=== PATIENT | female | born 1955 | race Hispanic/Latino ===

== ENCOUNTER → 2023-04-23 | Outpatient (CLI) | payer BC | END | disposition home or self-care (01) | LOC: OIH 09:43 | PROVIDERS: ATTEND Internal Medicine | DX: S93.401A Sprain of unspecified ligament of right ankle, initial encounter (principal); M79.89 Other specified soft tissue disorders; M77.31 Calcaneal spur, right foot; M19.071 Primary osteoarthritis, right ankle and foot; X58.XXXA Exposure to other specified factors, initial encounter; Y93.89 Activity, other specified; Y92.89 Other specified places as the place of occurrence of the external cause; Y99.8 Other external cause status | CPT/HCPCS: 73600 ==

== ENCOUNTER → 2024-07-21 | Outpatient (CLI) | payer OTHER ==
--- NOTE | 2024-07-21 11:00 | HMCIMG ---
KNEE/PATELLA 1-2VWS RT REASON: KNEE EFFUSION RIGHT TECHNIQUE: 2 views were obtained. FINDINGS: There is no evidence of fracture or dislocation. There is no joint effusion. The soft tissues appear unremarkable. There is no evidence of a radiopaque foreign body. There is moderate to medial and lateral joint space narrowing consistent with osteoarthritis. There is also mild lateral subluxation of the proximal tibia in relation to the distal femur. IMPRESSION: 1. Moderate osteoarthritis as described.
== END | disposition home or self-care (01) ==
LOC: RAH 07:59
PROVIDERS: ATTEND Internal Medicine
DX: S83.141A Lateral subluxation of proximal end of tibia, right knee, initial encounter (principal); M17.11 Unilateral primary osteoarthritis, right knee; M25.461 Effusion, right knee; X58.XXXA Exposure to other specified factors, initial encounter; Y93.9 Activity, unspecified; Y92.89 Other specified places as the place of occurrence of the external cause; Y99.8 Other external cause status
CPT/HCPCS: 73560

== ENCOUNTER → 2024-08-06 | Outpatient (CLI) | payer OTHER ==
--- NOTE | 2024-08-06 15:09 | HMCIMG ---
KNEE/PATELLA 1-2VWS LT REASON: CONTUSION OF LEFT KNEE TECHNIQUE: 2 views were obtained. FINDINGS: There is no evidence of fracture or dislocation. There is no joint effusion. The soft tissues appear unremarkable. There is no evidence of a radiopaque foreign body. IMPRESSION: No acute findings.
== END | disposition home or self-care (01) ==
LOC: RAH 12:08
PROVIDERS: ATTEND Internal Medicine
DX: S80.02XA Contusion of left knee, initial encounter (principal); X58.XXXA Exposure to other specified factors, initial encounter; Y93.89 Activity, other specified; Y92.89 Other specified places as the place of occurrence of the external cause; Y99.8 Other external cause status
CPT/HCPCS: 73560

== ENCOUNTER → 2024-08-13 | Outpatient (CLI) | payer OTHER ==
--- NOTE | 2024-08-13 16:40 | HMCIMG ---
KNEE 3VWS LT HISTORY: Pain COMPARISON: None TECHNIQUE: 3 images of left knee were obtained. FINDINGS: There is no acute displaced fracture or dislocation. There is soft tissue swelling. Degenerative changes are seen. IMPRESSION: 1. Findings as described above.
== END | disposition home or self-care (01) ==
LOC: EDBD 15:07 → RAH 15:07
PROVIDERS: ATTEND Internal Medicine
DX: M17.12 Unilateral primary osteoarthritis, left knee (principal); M25.562 Pain in left knee
CPT/HCPCS: 73562

== ENCOUNTER → 2024-12-16 | Outpatient (CLI) | payer OTHER ==
--- NOTE | 2024-12-16 11:28 | HMCIMG ---
Exam Type: US ABDOMINAL COMPLETE Clinical Information: unspecified abd pain Comparison: None Findings: The liver shows normal echogenicity is otherwise unremarkable. Doppler evaluation shows patent portal and hepatic veins. The gallbladder is surgically absent. No bile duct dilatation is noted. The common bile duct measures 7 mm. Kidneys are normal in size. Bilateral mild hydronephrosis. Right dilatation of the ureter. The pancreas is unremarkable. The spleen is unremarkable. The aorta and inferior vena cava show no significant abnormalities. IMPRESSION: Status post cholecystectomy. Bilateral hydronephrosis. Otherwise unremarkable exam.
== END | disposition home or self-care (01) ==
LOC: RAH 08:20
PROVIDERS: ATTEND Internal Medicine
DX: N13.30 Unspecified hydronephrosis (principal); R10.9 Unspecified abdominal pain; G89.29 Other chronic pain; R74.8 Abnormal levels of other serum enzymes; Z90.49 Acquired absence of other specified parts of digestive tract
CPT/HCPCS: 76700

== ENCOUNTER 2025-08-11 19:59 | Emergency (ER) | payer OTHER ==
[~2025-08-11] VITALS: Ht 142.2 cm; Wt 42.6 kg
[~2025-08-11 19:59] MED LIST: ACET-3859 PO; CHOL500051 PO; DENO60DI SQ; FERR30CA PO; FOLI0.8T53 PO; ROSU5TAB51 PO
[2025-08-11 20:46] LABS: IMMATURE GRANULOCYTE ABSOLUTE 0.02 K/uL (0-1); NUCLEATED RED BLOOD CELLS 0.0 % (0.0-0.19); PLATELET COUNT (AUTO) 111 K/uL (130-400); RED BLOOD CELL COUNT(AUTO) 3.93 MIL/uL (4.00-5.50); RED CELL DISTRIBUTION WIDTH 14.4 % (11.0-15.5); WHITE BLOOD COUNT (AUTO) 3.5 K/uL (4.8-10.8)
--- NOTE | 2025-08-11 20:47 | ERN ---
ED Note History of Present Illness Stated Complaint: C/O LEAKING NEPHROSTOMY BAG Chief Complaint: Other Problems Time Seen by MD: 20:03 Dictation: This is a 72-year-old female with multiple medical problems was recently admitted during the end of May with a acute renal failure bilateral hydronephrosis. Patient also has CKD and hence Dr. Sheppard the jewel bearing turner had an AV fistula placed in her left upper extremity and a temporary hemodialysis catheter in the neck was converted to a PermCath and dialysis was pursued. Patient had mild life-threatening metabolic acidosis and hyperkalemia as well as anemia requiring 2 units of PRBC. Patient apparently has a history of neurogenic bladder and has a chronic Martin catheter placed but she had complicated cystitis. Patient was urine self catheterizing herself however due to gross hematuria an indwelling Martin catheter was placed prior to her coming to the emergency room. Patient also underwent nephrostomy tube placements and eventually discharged to home. Comes back in today complaining of leaking nephrostomy tube. No fever chills or rigors. No hematuria. No bleeding per nephrostomy tubes. Temperature 98.4 pulse 89 respirations 20 blood pressure 160/74 with a pulse oximetry of 99% on room air Her chronic medical problems include history of cervical cancer, chronic kidney disease, neurogenic bladder Allergies: Coded Allergies: No Known Drug Allergies (Verified Allergy, Unknown, 06/18/25) Sulfa (Sulfonamide Antibiotics) (Unverified Allergy, Unknown, 06/18/25) Home Meds Active Scripts Folic Acid/Vit B Complex and C (Nephro Vitamins Tablet) 0.8 Mg Tablet, 0.8 MG PO DAILY, #90 TAB 1 Refill Prov:ROYA MANNING MD 06/24/25 Acetaminophen (Acetaminophen) 325 Mg Tablet, 650 MG PO Q6HPRN PRN for PAIN LEVEL 6 TO 10, #100 TAB Prov:ROYA MANNING MD 06/18/25 Cholecalciferol (Vitamin D3) (Vitamin D3) 125 Mcg (5000 Unit) Capsule, 125 MCG PO DAILYBKFST for 90 Days, #90 CAP Prov:ROYA MANNING MD 06/18/25 Denosumab (Prolia) 60 Mg/Ml Disp.syrin, 60 MG SQ AD for osteoporosis for 180 Days, #1 DIS.SYR Prov:ROYA MANNING MD 06/18/25 Ferric Maltol (Accrufer) 30 Mg Iron Capsule, 30 MG PO BID for 90 Days, #90 CAP Prov:ROYA MANNING MD 06/18/25 Reported Medications Rosuvastatin Calcium (Rosuvastatin Calcium) 5 Mg Tablet, 5 MG PO QWEEK, TAB 06/18/25 Past Medical History Past Medical History: Cancer, Renal Disese, Other Additional Past Medical Hx: CERVICAL CA (REMISSION) Surgical History: Other Surgical History Other: NEPHROSTOMY BAG Family History: Negative Social History: Negative History: Not Applicable RN Note Reviewed/Agreed w/PFSH: Yes Review of System Dictation Constitutional: Negative for fever,chills, and weight loss Eyes: Negative for injury, pain,redness, and discharge ENT: Negative for injury,pain or swelling Cardiovascular: Negative for chest pain, palpitations, and edema Respiratory: Negative for shortness of breath, cough, and wheezing, Abdomen/GI: Negative for abdominal pain, nausea, vomiting, diarrhea, and constipation Back: Negative for injury and pain positive for nephrostomy tube leakage : Negative for injury, bleeding and discharge MS/Extremity: Negative for injury and deformity Skin: Negative for rash, and discoloration Neuro: Negative for headache, weakness, numbness, tingling, and seizure Psych: Negative for suicide ideation, homicidal ideation, and hallucinations Initial Vital Sign VS Vital Signs Date Time Temp Pulse Resp B/P (MAP) Pulse Ox O2 Delivery O2 Flow Rate FiO2 08/11/25 20:01 98.4 89 20 160/74 99 Room Air 08/11/25 20:50 0 21 Physical Exam Dictation General: awake, alert, NAD emaciated elderly female who is malnourished. Patient's son at bedside patient was already threatening to leave AMA stating she did not want to wait until the CT scan results are back Head/Face: Normocephalic, atraumatic Eyes: PERRL, EOMI, vision at baseline ENT: oral cavity clear, TMs clear, no signs of infection Neck: Trachea midline, supple, no nuchal rigidity Cardiovascular: RRR, normal S1/S2, No MRGs, no JVD Respiratory: CTAB, no respiratory distress, No rales or wheezes Abdomen: Soft, non-tender, non-distended, normal bowel sounds, no guarding or rebound. Bilateral nephrostomy tubes in the flank areas and during my evalua tion the nurse has already readjusted them and did the wound dressing. Skin: Warm, dry, normal turgor, no rash MS/Extremity: Pulses equal, no cyanosis, neurovascular intact, FROM Neuro: COAx4, GCS 15, strength 5/5, CN 2-12 intact, normal cerebellar exam, n ormal gait, Psych: Normal behavior, mood, and affect normal Extremities-trace edema without any palpable cords, Homans sign is negative Results (Laboratory/Radiology) Laboratory/Radiology Laboratory Tests Test 08/11/25 20:37 08/11/25 21:15 White Blood Count 3.5 K/uL (4.8-10.8) L Red Blood Count 3.93 MIL/uL (4.00-5.50) L Hemoglobin 12.2 g/dL (12.0-16.0) Hematocrit 38.6 % (36-48) Mean Corpuscular Volume 98.2 fL (79-99) Mean Corpuscular Hemoglobin 31.0 pg (27.0-33.0) Mean Corpuscular Hemoglobin Concent 31.6 g/dL (32.0-36.0) L Red Cell Distribution Width 14.4 % (11.0-15.5) Platelet Count 111 K/uL (130-400) L Mean Platelet Volume 8.3 fL (7.5-10.5) Immature Granulocyte % (Auto) 0.6 % (0-1) Neutrophils (%) (Auto) 69.5 % (40.0-77.0) Lymphocytes (%) (Auto) 18.2 % (21.0-51.0) L Monocytes (%) (Auto) 9.1 % (3.0-13.0) Eosinophils (%) (Auto) 2.0 % (0.0-8.0) Basophils (%) (Auto) 0.6 % (0.0-5.0) Neutrophils # (Auto) 2.4 K/uL (1.8-7.7) Lymphocytes # (Auto) 0.6 K/uL (1.0-4.8) L Monocytes # (Auto) 0.3 K/uL (0.1-1.0) Eosinophils # (Auto) 0.07 K/uL (0.00-0.70) Basophils # (Auto) 0.02 K/uL (0.00-0.20) Absolute Immature Granulocyte (auto 0.02 K/uL (0-1) Nucleated Red Blood Cells 0.0 % (0.0-0.19) Sodium Level 140 mmol/L (136-145) Potassium Level 3.9 mmol/L (3.5-5.1) Chloride Level 104 mmol/L (101-111) Carbon Dioxide Level 28 mmol/L (21-32) Blood Urea Nitrogen 19 mg/dL (7-18) H Creatinine 1.5 mg/dL (0.5-1.0) H Glomerular Filtration Rate Calc 37 mL/min (>90) Random Glucose 93 mg/dL (70-105) Total Calcium 9.8 mg/dL (8.5-10.1) Urine Color LIGHT-YELLOW (YELLOW) Urine Appearance CLOUDY (CLEAR) H Urine pH 7.5 (5.0-8.0) Urine Specific [place] 1.007 (1.001-1.031) Urine Protein 100 mg/dL (NEGATIVE) H Urine Glucose (UA) NEGATIVE mg/dL (NEGATIVE) Urine Ketones NEGATIVE mg/dL (NEGATIVE) Urine Occult Blood MODERATE (NEGATIVE) H Urine Nitrate NEGATIVE (NEGATIVE) Urine Bilirubin NEGATIVE mg/dL (NEGATIVE) Urine Urobilinogen 0.2 mg/dL (0.2-1.0) Urine Leukocyte Esterase 500 Gregg/uL (NEGATIVE) H Urine RBC 6-10 /HPF (0-1) H Urine WBC TNTC /HPF (0-1) H Urine WBC Clumps (Auto) FEW /HPF (0-1) Urine Squamous Epithelial Cells RARE /HPF (0-2) Urine Bacteria MOD /HPF (None Seen) Labs Reviewed?: Yes CT Scan Comment: REASON: Nephrostomy leaking Evaluate kidneys and retroperitoneum and intra abd. pat ORDERING PHYSICIAN: MED ASHBY MD PROCEDURE: ABD PELVWO - CT ABD/PEL WO CON RENAL/APPY EXAM: CT Abdomen and Pelvis Without IV contrast. CLINICAL HISTORY: Patient presents with a leaking nephrostomy catheter for evaluation of the kidneys, retroperitoneum, and intra-abdominal pathology. TECHNIQUE: Axial computed tomography images of the abdomen and pelvis without intravenous contrast. CONTRAST: No IV contrast. COMPARISON: CT dated 06/18/2025 FINDINGS: LUNG BASES: Mild bibasilar dependent atelectasis. LIVER: Unremarkable. GALLBLADDER AND BILE DUCTS: Post cholecystectomy status. No biliary ductal dilatation. PANCREAS: Unremarkable. SPLEEN: Stable small calcified granuloma. ADRENAL GLANDS: Unremarkable. KIDNEYS, URETERS, AND BLADDER: Relatively smaller right kidney. Significant interval resolution of previously demonstrated moderate bilateral hydroureteronephrosis with a percutaneous nephrostomy catheter in situ. Associated with mild smooth wall thickening of the bilateral renal pelvis and proximal ureters. Mild bilateral perinephric fat stranding and haziness. The urinary bladder is suboptimally distended with increased wall thickening. No urinary calculi. STOMACH AND BOWEL: Mild fecal loading suggesting constipation. No bowel obstruction. Postsurgical clips in the left inguinal region. APPENDIX: No CT features of acute appendicitis. PERITONEUM: Moderate interval reduction in previously demonstrated free fluid. No free air. LYMPH NODES: No pathologically enlarged lymph nodes. REPRODUCTIVE: Uterus not well visualized. VASCULATURE: Mild atheromatous wall calcifications in the aorta and its branches. Redemonstrated metallic implants near the para-aortic region. BONES: Transpedicular fixation screws with partly deficient posterior elements in the lumbar vertebrae. Redemonstrated anterior wedging of the L1 vertebral body with height reduction. Multilevel moderate spondylosis. IMPRESSION: Significant interval resolution of bilateral hydroureteronephrosis following percutaneous nephrostomy placement. Relatively smaller right kidney, suggestive of chronic renal parenchymal disease. Stable mild bilateral renal pelvic and proximal ureteric wall thickening with mild perinephric fat stranding, likely inflammatory or post-interventional. Urinary bladder wall thickening in a suboptimally distended bladder favors cystitis. Interval reduction in previously demonstrated intraperitoneal free fluid. Post cholecystectomy status. Stable splenic calcified granuloma. Degenerative and post-surgical changes in the lumbar spine with L1 anterior wedge compression. Recommendation: Contrast-enhanced CT urography or MR urography for further evaluation of urothelial thickening and nephrostomy tract, as clinically indicated. /[place] DICTATED BY: MARICARMEN ROMERO Jr., MD DATE: 08/11/252258 ELECTRONICALLY SIGNED BY: MARICARMEN ROMERO Jr., MD DATE: 08/11/252258 ED Course ED Course Orders Procedure Category Date Status Time Cbc With Differential LAB 08/11/25 Complete 20:28 Basic Metabolic Panel LAB 08/11/25 Complete 20:28 Urinalysis Profile LAB 08/11/25 Complete 20:28 Ct Abd/Pel Wo Con CT 08/11/25 Resulted Renal/Appy 20:36 Culture Urine PHIL 08/11/25 In Process 21:27 Vital Signs Date Time Temp Pulse Resp B/P (MAP) Pulse Ox O2 Delivery O2 Flow Rate FiO2 08/11/25 20:50 98.8 85 18 132/66 99 Room Air* 0 21 08/11/25 20:01 98.4 89 20 160/74 99 Room Air Medical Decision Making MDM Differential diagnosis-pyelonephritis, urinary tract infection, malfunctioning nephrostomy tube with a obstruction, accidental dislodgement This is a 72-year-old female with multiple medical problems was recently admitted during the end of May with a acute renal failure bilateral hydronephrosis. Patient also has CKD and hence Dr. Sheppard the jewel bearing turner had an AV fistula placed in her left upper extremity and a temporary hemodialysis catheter in the neck was converted to a PermCath and dialysis was pursued. Patient had mild life-threatening metabolic acidosis and hyperkalemia as well as anemia requiring 2 units of PRBC. Patient apparently has a history of neurogenic bladder and has a chronic Martin catheter placed but she had complicated cystitis. Patient was urine self catheterizing herself however due to gross hematuria an indwelling Martin catheter was placed prior to her coming to the emergency room. Patient also underwent nephrostomy tube placements and eventually discharged to home. Comes back in today complaining of leaking nephrostomy tube. No fever chills or rigors. No hematuria. No bleeding per nephrostomy tubes. Temperature 98.4 pulse 89 respirations 20 blood pressure 160/74 with a pulse oximetry of 99% on room air Her chronic medical problems include history of cervical cancer, chronic kidney disease, neurogenic bladder Rationale: Tests considered and ordered secondary to shared decision making include: Labs, CT scan of the abdomen and pelvis Previous outside records reviewed: Old ER visits. Risk of complication and/or morbidity or mortality of patient management: None Medications-Per medication reconciliation I updated the patient and her son about my concerns for persistent UTI and perhaps pyelonephritis and need for antibiotics however the patient stated that she was already on an antibiotic but could not give me the name. Patient signed out against medical advice from the emergency room. As per the primary nurse patient does not wish to continue any treatment at this time and is refusing to stay and complete the evaluation and disposition. The patient is fully aware of all the risks and benefits of leaving against medical advice. Possible benefits include correction of the current medical condition and improvement of symptoms. However the patient was advised the possible risks of leaving against medical advice include worsening of the current medical condition, including or causing . The patient and caregiver verbalized understanding of the risks and benefits discussed and despite this, the patient has signed out against medical advice. Please refer to the nursing documentation for further details. Patient has was advised to follow up at least with their primary care physician as soon as possible or return to the emergency department if symptoms worsen Addendum 1:[address] scan of the abdomen and pelvis was reported-significant improvement and interval resolution of the hydroureter and hydronephrosis. Inflammatory changes in the perinephric areas. Please see the full report Problem List Problem List: (1) Malfunction of nephrostomy tube (2) UTI (urinary tract infection) DX & DISP Disposition: AMA Departure Impression: Primary Impression: Malfunction of nephrostomy tube Additional Impression: UTI (urinary tract infection) Condition: Stable Additional Instructions: Patient signed out against medical advice from the emergency room. As per the primary nurse patient does not wish to continue any treatment at this time and is refusing to stay and complete the evaluation and disposition. The patient is fully aware of all the risks and benefits of leaving against medical advice. Possible benefits include correction of the current medical condition and improvement of symptoms. However the patient was advised the possible risks of leaving against medical advice include worsening of the current medical condition, including or causing . The patient and caregiver verbalized understanding of the risks and benefits discussed and despite this, the patient has signed out against medical advice. Please refer to the nursing documentation for further details. Patient has was advised to follow up at least with their primary care physician as soon as pos sible or return to the emergency department if symptoms worsen Referrals: ROYA MANNING MD (PCP) MED ASHBY MD Aug 11, 2025 20:47
[2025-08-11 20:50] VITALS: BP 132/66; PULSE 85; RESP 18; TEMP 98.8; O2SAT 99
[2025-08-11 20:52] LABS: CREATININE 1.5 mg/dL (0.5-1.0); GLOMERULAR FILTR. RATE CALC 37.0 mL/min (>90); GLUCOSE,RANDOM 93.0 mg/dL (70-105); SODIUM SERUM 140.0 mmol/L (136-145); UREA NITROGEN, BLOOD 19.0 mg/dL (7-18)
[2025-08-11 21:27] LABS: ADD UA MICROSCOPIC YES; APPEARANCE,URINE CLOUDY (CLEAR); GLUCOSE, URINE (UA) NEGATIVE (NEGATIVE); LEUKOCYTE ESTERASE ,URINE 500 Leu/uL (NEGATIVE); NITRATE,URINE NEGATIVE (NEGATIVE); OCCULT BLOOD,URINE MODERATE (NEGATIVE)
[2025-08-11 21:30] LABS: SQUAMOUS EPITHELIAL CELL,UR RARE /HPF (0-2); WBC CLUMP FEW /HPF (0-1)
--- NOTE | 2025-08-11 22:44 | HMCIMG ---
EXAM: CT Abdomen and Pelvis Without IV contrast. CLINICAL HISTORY: Patient presents with a leaking nephrostomy catheter for evaluation of the kidneys, retroperitoneum, and intra-abdominal pathology. TECHNIQUE: Axial computed tomography images of the abdomen and pelvis without intravenous contrast. CONTRAST: No IV contrast. COMPARISON: CT dated 06/18/2025 FINDINGS: LUNG BASES: Mild bibasilar dependent atelectasis. LIVER: Unremarkable. GALLBLADDER AND BILE DUCTS: Post cholecystectomy status. No biliary ductal dilatation. PANCREAS: Unremarkable. SPLEEN: Stable small calcified granuloma. ADRENAL GLANDS: Unremarkable. KIDNEYS, URETERS, AND BLADDER: Relatively smaller right kidney. Significant interval resolution of previously demonstrated moderate bilateral hydroureteronephrosis with a percutaneous nephrostomy catheter in situ. Associated with mild smooth wall thickening of the bilateral renal pelvis and proximal ureters. Mild bilateral perinephric fat stranding and haziness. The urinary bladder is suboptimally distended with increased wall thickening. No urinary calculi. STOMACH AND BOWEL: Mild fecal loading suggesting constipation. No bowel obstruction. Postsurgical clips in the left inguinal region. APPENDIX: No CT features of acute appendicitis. PERITONEUM: Moderate interval reduction in previously demonstrated free fluid. No free air. LYMPH NODES: No pathologically enlarged lymph nodes. REPRODUCTIVE: Uterus not well visualized. VASCULATURE: Mild atheromatous wall calcifications in the aorta and its branches. Redemonstrated metallic implants near the para-aortic region. BONES: Transpedicular fixation screws with partly deficient posterior elements in the lumbar vertebrae. Redemonstrated anterior wedging of the L1 vertebral body with height reduction. Multilevel moderate spondylosis. IMPRESSION: Significant interval resolution of bilateral hydroureteronephrosis following percutaneous nephrostomy placement. Relatively smaller right kidney, suggestive of chronic renal parenchymal disease. Stable mild bilateral renal pelvic and proximal ureteric wall thickening with mild perinephric fat stranding, likely inflammatory or post-interventional. Urinary bladder wall thickening in a suboptimally distended bladder favors cystitis. Interval reduction in previously demonstrated intraperitoneal free fluid. Post cholecystectomy status. Stable splenic calcified granuloma. Degenerative and post-surgical changes in the lumbar spine with L1 anterior wedge compression. Recommendation: Contrast-enhanced CT urography or MR urography for further evaluation of urothelial thickening and nephrostomy tract, as clinically indicated. /[place]
== END 2025-08-11 22:08 | disposition left against medical advice (07) ==
LOC: EDH 19:59
DX: T83.012A Breakdown (mechanical) of nephrostomy catheter, initial encounter (principal); N39.0 Urinary tract infection, site not specified; N18.9 Chronic kidney disease, unspecified; Z53.29 Procedure and treatment not carried out because of patient's decision for other reasons; Z88.2 Allergy status to sulfonamides; Z99.2 Dependence on renal dialysis; Z90.49 Acquired absence of other specified parts of digestive tract; Z85.41 Personal history of malignant neoplasm of cervix uteri; Y73.2 Prosthetic and other implants, materials and accessory gastroenterology and urology devices associated with adverse incidents
CPT/HCPCS: 36415; 74176; 80048; 81001; 85025; 87086; 87186; 99284